=== PATIENT | female | born 1950 | race Caucasian/White ===

== ENCOUNTER → 2016-11-04 14:27 | Outpatient (CLI) | payer MEDICARE | END | disposition home or self-care (01) | LOC: D.MAMMO 10-03 15:45 | DX: Z12.31 Encounter for screening mammogram for malignant neoplasm of breast (principal) ==

== ENCOUNTER → 2018-06-03 18:58 | Outpatient (CLI) | payer MEDICARE | END | disposition home or self-care (01) | LOC: D.MAMMO 11:30 | DX: Z12.31 Encounter for screening mammogram for malignant neoplasm of breast (principal) ==

== ENCOUNTER 2018-08-17 08:00 | Outpatient (CLI) | payer MEDICARE | END 2018-08-17 09:00 | disposition home or self-care (01) | LOC: D.MAMMO 08:00 | DX: R92.8 Other abnormal and inconclusive findings on diagnostic imaging of breast (principal) ==

== ENCOUNTER 2019-07-19 08:00 | Outpatient (CLI) | payer MEDICARE | END 2019-07-19 23:59 | disposition home or self-care (01) | LOC: D.MAMMO 08:00 | PROVIDERS: ATTEND Nurse Practitioner | DX: R92.8 Other abnormal and inconclusive findings on diagnostic imaging of breast (principal) ==

== ENCOUNTER 2019-11-28 13:56 | Emergency (ER) | payer MEDICARE ==
[~2019-11-28] VITALS: Ht 154.9 cm; Wt 74.1 kg
[2019-11-28 14:07] VITALS: Ht 154.9 cm; Wt 74.1 kg
[2019-11-28] MEDS ORDERED: BYSTOLIC10 MG (14:08)
[2019-11-28] MEDS ORDERED: DONEPEZIL HCL10 MG (14:08)
[2019-11-28] MEDS ORDERED: SYNTHROID25 MCG (14:08)
[2019-11-28 15:45] LABS: ANION GAP 9.3 mmol/L (8-16); CALCIUM 8.7 mg/dL (8.5-10.1); CARBON DIOXIDE 27.9 mmol/L (21.0-32.0); POTASSIUM - SERUM 3.2 mmol/L (3.5-5.1)
[2019-11-28 15:50] LABS: ALBUMIN 3.4 g/dL (3.4-5.0); BILIRUBIN - TOTAL 0.19 mg/dL (0.2-1.3); PROTEIN - SERUM 6.4 g/dL (6.4-8.2)
[2019-11-28 15:52] LABS: BASOPHILS 0.2 % (0-2); EOSINOPHILS 0.1 % (0-7); HEMATOCRIT 32.1 % (36.0-48.0); HEMOGLOBIN 10.2 g/dL (12-16); IMMATURE GRANULOCYTES 0.2 % (0-5); LYMPHOCYTES 7.9 % (15-50); MCH 29.6 pg (26.0-34.0); MCHC 31.8 g/dL (31.0-37.0); MEAN PLATELET VOLUME 11.3 fL (7.4-10.4); MONOCYTES 5.5 % (2-11); NEUTROPHILS 86.1 % (40-80); PLATELET COUNT 361 10x3/uL (130-400); RBC 3.45 10x6/uL (4.00-5.40); RDW 13.5 % (11.5-14.5)
[2019-11-28] MEDS ORDERED: ZOFRAN ODT4 MG/UDTAB PO (16:35)
[2019-11-28] MEDS ORDERED: TYLENOL W/CODEI1 TAB PO (16:35)
[2019-11-28] MEDS ORDERED: LIORESAL 10 MG10 MG PO (16:35)
[2019-11-28 17:02] VITALS: BP 179/66
== END 2019-11-28 17:02 | disposition home or self-care (01) ==
LOC: D.ER 13:56
PROVIDERS: Family Medicine
DX: M25.552 Pain in left hip (principal); W19.XXXA Unspecified fall, initial encounter; Y93.9 Activity, unspecified; Y92.9 Unspecified place or not applicable; E07.9 Disorder of thyroid, unspecified; K21.9 Gastro-esophageal reflux disease without esophagitis